=== PATIENT | female | born 1990 | race Caucasian/White ===

== ENCOUNTER 2022-03-31 20:30 | Observation (INO) | payer MEDICAID, SELFPAY ==
[2022-03-31 19:44] VITALS: BP 144/97; PULSE 82; RESP 16; TEMP 36.8; O2SAT 97
[2022-03-31 19:53] VITALS: BMI 25.4
--- NOTE | 2022-03-31 20:25 | HP.PCM_ITS ---
HPI - General General Date of Admission: 03/31/22 Date of Service: 03/31/22 Chief Complaint: Alcohol withdrawal HPI Narrative JEROME ROCHA, is a 31 F who presents to the [facility] from a [facility] emergency room requesting detoxification from alcohol. Patient states for the last 3 months she has had a bottle of Jasper's daily and has been hiding this from her fianc?. She has a history of drinking for the pas t 5 years but has been significantly increased over the last 3 months. She states she had to call off her job again and was worried about losing her job and this motivated her to seek help. She also admits to hiding her alcohol abuse from her family members. She denies chest pain, shortness of breath or fevers or chills at this time. She will be admitted for alcohol cessation protocol and social work consulted to help with resources postdischarge. PENDING SALE TO [facility] Medical History (Updated 03/31/22 @ 19:58 by Jonny Cash) ADHD (attention deficit hyperactivity disorder) Anxiety ETOH abuse Hypertension Panic disorder Home Medications norethindrone-e.estradiol triphasic 0.5 mg/0.75 mg/1 mg-35 mcg tablet (Nortrel (28)) 1 tab PO DAILY control 03/31/22 [History Last Taken 03/30/22] Allergy/AdvReac Type Severity Reaction Status Date / Time No Known Allergies Allergy Verified 03/31/22 19:55 Social History Smoking Status: Never smoker ROS Constitutional Constitutional: Denies chills or fever(s) Eyes Eyes: Denies change in vision ENT HEENT: Denies abnormal hearing Cardiovascular Cardiovascular: Denies chest pain Respiratory/Chest Respiratory/Chest: Denies cough Gastrointestinal Gastrointestinal: Denies abdominal pain Genitourinary Genitourinary: Denies dysuria Musculoskeletal Musculoskeletal: Denies back pain Integumentary Integumentary: Denies wounds Neurologic Neurologic: Denies abnormal speech Psychiatric Psychiatric: Reports anxiety Vital Signs Vital Signs Vital Signs: 03/31/22 19:44 Temperature 98.2 F Temperature Source Oral Pulse Rate 82 Respiratory Rate 16 Blood Pressure 144/97 H Blood Pressure Mean 112 Blood Pressure Source Monitor Blood Pressure Position Semi-Fowlers Blood Pressure Location Left Arm Pulse Ox 97 Oxygen Delivery Method Room Air Weight Weight: 148 lb Body Mass Index (BMI) 25.4 Physical Exam Const oriented x3 General Appearance: cooperative and well developed HEENT normocephalic and head/scalp atraumatic Eyes PERRL and EOMs intact bilaterally Lymph Lymphatic: no lymphadenopathy noted Resp normal respiratory effort, normal air movement and clear to auscultation bilaterally Cardio regular rate, regular rhythm, S1 normal heart sound and S2 normal heart sound GI non-tender and non-distended Extremity normal capillary refill Skin General Skin Exam: no breakdown Neuro CN's II-XII intact bilaterally Psych cooperative and affect normal Mood & Affect: anxious Assessment & Plan Assessment/Plan (1) ETOH abuse: PLAN: Plan 1. Alcohol abuse?admit patient to general medical floor, start [facility] protocol. We will connect patient to case management to help with discharge planning and resources. Charges/Coding Visit Charges Inpatient E&M: 26159 Init Hosp L3
[2022-03-31] MEDS: LORazepam 1 MG Tablet PO (21:20)
[2022-04-01 00:26] VITALS: BP 122/68; PULSE 92; RESP 16; TEMP 36.7; O2SAT 97
[2022-04-01] MEDS: LORazepam 1 MG Tablet PO ×6 (00:28→21:53)
[2022-04-01 05:47] VITALS: BP 141/91; PULSE 84; RESP 16; TEMP 36.7; O2SAT 99
[2022-04-01 07:46] LABS: Absolute Lymphocyte Count 1.51 X10^3/uL (0.83-4.51); Absolute Neutrophil Count 2.6 X10^3/uL (2.0-7.7); Basophil# 0.05 X10^3/uL; Basophil% 1.1 % (0-1); Eosinophil# 0.09 X10^3/uL; Hematocrit 32.4 % (37-47); Lymphocyte # 1.51 X10^3/ul (0.83-4.51); Lymphocyte % 32.9 % (19-41); Mean Corpuscular Hgb 33.7 pg (27.0-32.0); Mean Corpuscular Volume 99.4 fL (81-99); Mean Platelet Vol. 9.6 fl (6.2-12.0); Monocyte# 0.31 X10^3/uL; Monocyte% 6.8 % (0-10); NRBC Flagged by Analyzer 0 % (0-5); Neutrophil # 2.62 X10^3/uL (2.7-7.7); POSITIVE COUNT YES; Platelet Count 92 K/mm3 (150-450); RBC Distribution Width CV 16.2 % (11.6-14.6); RBC Distribution Width SD 59.5 fl (35.1-43.9); Red Blood Count 3.26 M/mm3 (4.2-5.4); White Blood Count 4.6 K/mm3 (4.4-11.0)
[2022-04-01 08:16] LABS: ALB/GLOB Ratio 0.8 RATIO (0.9-2.4); AST(SGOT) 167 U/L (15-37); Alanine Aminotransfer ALT/SGPT 37 U/L (13-56); Albumin, Serum 2.6 g/dL (3.2-5.0); Alkaline Phosphatase 64 U/L (45-117); Anion Gap 11 (5-15); BUN 8 mg/dL (7-18); BUN/Creat Ratio 16.2 RATIO (10-20); Calcium,Total 7.5 mg/dL (8.5-10.1); Chloride 105 mmol/L (98-107); EST Glomerular Filtration Rate 156 mL/min (>60); Est Glom Filt Rate - Afr Amer 189 mL/min (>60); Estimated Creatinine Clearance 143.36 ml/min; Globulin 3.3 g/dL (2.2-4.2); Glucose 85 mg/dL (74-106); Potassium 3.7 mmol/L (3.5-5.1); Protein, Total 5.9 g/dL (6.4-8.2); Sodium Level 139 mmol/L (136-145)
[2022-04-01] MEDS: Folic Acid 1 MG Tablet PO (08:20)
[2022-04-01] MEDS: Thiamine Hydrochloride 100 MG Tablet PO (08:20)
[2022-04-01 08:21] LABS: Differential Indicated SCAN CRITERIA MET
[2022-04-01 08:40] VITALS: BP 139/78; PULSE 90; RESP 18; TEMP 36.5; O2SAT 97
--- NOTE | 2022-04-01 09:41 | PCM.PN.HOSP ---
Subjective Subjective Follow-up on acute alcohol withdrawal: Patient was seen and examined. She complains of tremors. Denies any nausea or vomiting. Objective Data Objective Data Vital Signs: Vital Signs Temp Pulse Resp BP Pulse Ox O2 Del Method 98.1 F 84 16 141/91 H 99 Room Air 04/01/22 05:47 04/01/22 05:47 04/01/22 05:47 04/01/22 05:47 04/01/22 05:47 04/01/22 08:27 Oxygen Delivery Method Room Air Weight: 67.132 kg Body Mass Index (BMI) 25.4 Intake & Output: Intake and Output for Last 24 Hours 03/30/22 03/31/22 04/01/22 23:59 23:59 23:59 Intake Total 600 / 600 600 / 600 Balance 600 / 600 600 / 600 Lab / Micro Data Result Diagrams: 04/01/22 07:33 04/01/22 07:33 Labs: Laboratory Results - last 24 hr 04/01/22 07:33: WBC 4.6, RBC 3.26 L, Hgb 11.0 L, Hct 32.4 L, MCV 99.4 H, MCH 33.7 H, MCHC 34.0, RDW Std Deviation 59.5 H, RDW Coeff of Yao 16.2 H, Plt Count 92 L, MPV 9.6, Immature Gran % (Auto) 0.200, Neut % (Auto) 57.0, Lymph % (Auto) 32.9, [place] % (Auto) 6.8, Eos % (Auto) 2.0, Baso % (Auto) 1.1 H, Absolute Neuts (auto) 2.6, Absolute Lymphs (auto) 1.51, Nucleated RBC % 0 04/01/22 07:33: Sodium 139, Potassium 3.7, Chloride 105, Carbon Dioxide 23.0, Anion Gap 11, BUN 8, Creatinine 0.50 L, Estim Creat Clear Calc 143.36, Est GFR (MDRD) Af Amer 189, Est GFR (MDRD) Non-Af 156, BUN/Creatinine Ratio 16.2, Glucose 85, Calcium 7.5 L, Total Bilirubin 0.60, AST 167 H, ALT 37, Alkaline Phosphatase 64, Total Protein 5.9 L, Albumin 2.6 L, Globulin 3.3, Albumin/Globulin Ratio 0.8 L Physical Exam Narrative Physical exam: General: Alert, Oriented x3, Cooperative, no apparent distress HEENT: Atraumatic Oral: Moist Mucosa Neck: Supple Lungs:Diminished to auscultation Cardiovascular: HS I+II, regular, no murmurs Abdomen: Bowel Sounds Present, Soft, Non Tender Extremities: No edema Skin: No rashes, No breakdown Neurological: Grossly intact Psych/Mental Status: Appropriate Assessment & Plan Assessment/Plan (1) Alcohol withdrawal: PLAN: Plan 1. Acute alcohol withdrawal, slowly improving Continue therapy with phenobarbital withdrawal protocol 2. DVT prophylaxis?SCDs Charges/Coding Visit Charges Inpatient E&M: 63818 Subs Hosp L2
--- NOTE | 2022-04-01 11:08 | ADDICTION ---
This procedure writer met with PT to conduct ASAM, MSE, AUDIT, DUDIT assessments and to plan for d/c. PT A+Ox4 and participated actively. All assessments completed and placed in PT's chart. PT plans to f/u with follow-up treatment services, however she wanted to discuss it with her family upon d/c. This worker offered resources based on her listed wants and needs. PT did not indicate a need for transportation post d/c from [facility].
[2022-04-01] MEDS: Dicyclomine 10 MG Capsule 20 MG PO (11:20)
[2022-04-01] MEDS: Gabapentin 300 MG Capsule PO ×2 (11:20→21:54)
[2022-04-01 13:30] LABS: Platelet Estimate MOD DEC (ADEQ); Red Cell Morphology NORM C+C NORMAL (NORM C&C)
[2022-04-01] MEDS: hydrOXYzine PAM 25 MG Capsule 50 MG PO (13:56)
[2022-04-01 14:40] VITALS: BP 156/106; PULSE 79; RESP 18; TEMP 37.1; O2SAT 98
[2022-04-01 21:43] VITALS: BP 168/113; PULSE 86; RESP 16; TEMP 37.5; O2SAT 99
[2022-04-01] MEDS: traZODone 100 MG Tablet PO (21:54)
[2022-04-02] MEDS: LORazepam 1 MG Tablet PO ×3 (01:23→08:58)
[2022-04-02 04:49] VITALS: BP 152/104; PULSE 93; RESP 18; TEMP 36.5; O2SAT 99
[2022-04-02] MEDS: hydrOXYzine PAM 25 MG Capsule 50 MG PO (04:54)
--- NOTE | 2022-04-02 07:06 | PCM.PN.HOSP ---
Subjective Subjective Follow-up on acute alcohol withdrawal: Patient was seen and examined.? No acute events overnight. She feels improved. Objective Data Objective Data Vital Signs: Vital Signs Temp Pulse Resp BP Pulse Ox O2 Del Method 97.7 F L 93 18 152/104 H 99 Room Air 04/02/22 04:49 04/02/22 04:49 04/02/22 04:49 04/02/22 04:49 04/02/22 04:49 04/02/22 04:49 Oxygen Delivery Method Room Air Weight: 67.132 kg Body Mass Index (BMI) 25.4 Intake & Output: Intake and Output for Last 24 Hours 03/31/22 04/01/22 04/02/22 23:59 23:59 23:59 Intake Total 600 / 600 1700 / 1700 1000 / 1000 Balance 600 / 600 1700 / 1700 1000 / 1000 Lab / Micro Data Result Diagrams: 04/01/22 07:33 04/01/22 07:33 Labs: Laboratory Results - last 24 hr 04/01/22 07:33: WBC 4.6, RBC 3.26 L, Hgb 11.0 L, Hct 32.4 L, MCV 99.4 H, MCH 33.7 H, MCHC 34.0, RDW Std Deviation 59.5 H, RDW Coeff of Yao 16.2 H, Plt Count 92 L, MPV 9.6, Immature Gran % (Auto) 0.200, Neut % (Auto) 57.0, Lymph % (Auto) 32.9, [place] % (Auto) 6.8, Eos % (Auto) 2.0, Baso % (Auto) 1.1 H, Absolute Neuts (auto) 2.6, Absolute Lymphs (auto) 1.51, Nucleated RBC % 0, Platelet Estimate MOD DEC, RBC Morphology NORM C+C 04/01/22 07:33: Sodium 139, Potassium 3.7, Chloride 105, Carbon Dioxide 23.0, Anion Gap 11, BUN 8, Creatinine 0.50 L, Estim Creat Clear Calc 143.36, Est GFR (MDRD) Af Amer 189, Est GFR (MDRD) Non-Af 156, BUN/Creatinine Ratio 16.2, Glucose 85, Calcium 7.5 L, Total Bilirubin 0.60, AST 167 H, ALT 37, Alkaline Phosphatase 64, Total Protein 5.9 L, Albumin 2.6 L, Globulin 3.3, Albumin/Globulin Ratio 0.8 L Physical Exam Narrative Physical exam: General: Alert, Oriented x3, Cooperative, no apparent distress HEENT: Atraumatic Oral: Moist Mucosa Neck: Supple Lungs:Diminished to auscultation Cardiovascular: HS I+II, regular, no murmurs Abdomen: Bowel Sounds Present, Soft, Non Tender Extremities: No edema Skin: No rashes, No breakdown Neurological: Grossly intact Psych/Mental Status: Appropriate Assessment & Plan Assessment/Plan (1) Alcohol withdrawal: PLAN: Plan 1. Acute alcohol withdrawal, improving Patient continues to require medication and monitoring for withdrawal based on regular assessment and remains appropriate for ASAM level 4.0 Continue therapy with phenobarbital withdrawal protocol 2. DVT prophylaxis?SCDs Charges/Coding Visit Charges Inpatient E&M: 94952 Subs Hosp L2
[2022-04-02] MEDS: Thiamine Hydrochloride 100 MG Tablet PO (07:57)
[2022-04-02] MEDS: Folic Acid 1 MG Tablet PO (07:57)
[2022-04-02 08:00] VITALS: BP 149/108; PULSE 87; RESP 16; TEMP 36.8; O2SAT 100
[2022-04-02 13:08] VITALS: BP 149/106; PULSE 110; RESP 16; TEMP 37; O2SAT 100
--- NOTE | 2022-04-02 13:10 | NURSING ---
pt stated she was going to leave because she stated she feels fine. explained that pt would be leaving ama. explained what ama was. pt understood and still wanted to leave. pt signed ama papers. dr booth notified.
== END 2022-04-02 14:13 | disposition left against medical advice (07) | DRG 770 ==
PROVIDERS: Visit Provider Internal Medicine
DX: F10.139 Alcohol abuse with withdrawal, unspecified (principal); Z53.29 Procedure and treatment not carried out because of patient's decision for other reasons; Y90.9 Presence of alcohol in blood, level not specified; I10 Essential (primary) hypertension
CPT/HCPCS: G0379; 36415; 80053; 85025; 99221; G0378

== ENCOUNTER 2022-04-04 09:44 | Emergency (ER) | payer MEDICAID, SELFPAY ==
[2022-04-04 09:48] VITALS: BP 136/94; PULSE 88; RESP 18; TEMP 36.1; O2SAT 100; BMI 24.0
--- NOTE | 2022-04-04 10:18 | EX.ED.DYSGE1 ---
HPI History of Present Illness Chief Complaint: Abd Pain Informant: patient Narrative Narrative: Sent from urgent care patient requested EMS transport from there. 2-day history lower abdominal pain dysuria with frequency. Diarrhea for 2 days. Nonbloody. Too many to count. Denies recent antibiotics. States been having chills. No rhinorrhea or cough. No nausea or vomiting. Denies sick contacts. COVID vaccinated, COVID infection 6 months ago. She is tolerating oral fluids. History of pyelonephritis while in high school. Denies any allergies. Denies back pain. Last menstrual period a week ago. [facility] Medical History ADHD (attention deficit hyperactivity disorder) Anxiety ETOH abuse Hypertension Panic disorder Home Medications norethindrone-e.estradiol triphasic 0.5 mg/0.75 mg/1 mg-35 mcg tablet (Nortrel (28)) 1 tab PO DAILY control 03/31/22 [History Last Taken 03/30/22] cephalexin 500 mg capsule 500 mg PO Q12 #14 caps 04/04/22 [Rx Last Taken Unknown] Allergy/AdvReac Type Severity Reaction Status Date / Time No Known Allergies Allergy Verified 04/04/22 09:06 Social History Smoking Status: Never smoker ROS ROS ED Constitutional Constitutional ED: Reports chills; Denies fever(s) or sweats Eyes Eyes: Denies change in vision ENT ENT ED: Denies dysphagia or sore throat Cardiovascular Cardiovascular: Denies chest pain, leg edema, palpitations or racing heartbeat Respiratory/Chest Respiratory/Chest: Denies cough, dyspnea or dyspnea on exertion Gastrointestinal Gastrointestinal: Reports abdominal pain and diarrhea; Denies nausea or vomiting Genitourinary Genitourinary ED: Reports dysuria and urinary frequency; Denies hematuria Musculoskeletal Musculoskeletal: Denies back pain, extremity pain or neck pain Integumentary Denies rash or wounds Neurologic Neurologic: Denies headache(s), paresthesias or weakness EXAM Physical Exam Const Vital Signs: 04/04/22 09:48 04/04/22 11:34 Temperature 97 F L Temperature Source Temporal Pulse Rate 88 89 Respiratory Rate 18 16 Blood Pressure 136/94 H 124/87 H Blood Pressure Mean 108 Pulse Ox 100 99 Oxygen Delivery Method Room Air Positive well nourished and well developed General Appearance ED: well developed and NAD HEENT HEENT Narrative: Mild dry mucosal membranes normocephalic and atraumatic Eyes PERRL, EOMs intact bilaterally and conjunctivae normal General Eye ED: Yes normal appearance of both eyes Neck no lymphadenopathy and supple General: Negative for tenderness Chest Wall Chest: Negative for tenderness Resp normal respiratory effort and normal air movement Effort and Inspection: symmetric chest movement; Negative for respiratory distress Cardio regular rate, regular rhythm and no murmurs Peripheral Pulses: pulses 2+ throughout GI normal to inspection, nondistended, normoactive bowel sounds and non-tender GI Narrative: No reproducible tenderness. Negative Liu's McBurney's tenderness. Palpation: Negative for guarding or rebound tenderness present Back/Spine no CVA tenderness and no thoracic nor lumbar tenderness Extremity normal to inspection General Extremety ED: Negative for edema or tenderness General Extremity: Negative for edema Neuro oriented x3 and no sensory deficits noted Sensorium / Orientation: awake and alert Skin no rashes or lesions noted and no wounds MDM MDM MDM Narrative Medical decision making narrative: Patient vital stable. Nontoxic nonsurgical abdomen. With reported chills diarrhea COVID influenza obtained negative. Labs were obtained white count 5.7 hemoglobin 7.9 creatinine 0.64 potassium 3.5 sodium 134. Initial order for urine however per nursing there is urine resulted from the clinic. hCG negative urine noted leukocytes. Trace blood. She is symptomatic with urine. She has a noncomplicated UTI with chills. She started on Keflex. She is able to tolerate p.o. intake in the ED. She did have slight transaminitis, however reviewing records 3 days ago admitted for alcohol dependence. She is following outpatient program. Likely alcoholic hepatitis. She has no withdrawal symptoms. She is given follow-up as an outpatient. All questions answered. Lab Data Labs: Laboratory Results - last 24 hr 04/04/22 04/04/22 10:30 10:30 WBC 5.7 RBC 3.51 L Hgb 11.9 L Hct 35.6 L MCV 101.4 H MCH 33.9 H MCHC 33.4 RDW Std Deviation 57.6 H RDW Coeff of Yao 15.3 H Plt Count 90 L MPV 11.0 Immature Gran % (Auto) 0.300 Neut % (Auto) 75.6 H Lymph % (Auto) 14.7 L [place] % (Auto) 8.4 Eos % (Auto) 0.7 Baso % (Auto) 0.3 Absolute Neuts (auto) 4.3 Absolute Lymphs (auto) 0.84 Nucleated RBC % 0 Sodium 134 L Potassium 3.5 Chloride 98 Carbon Dioxide 23.0 Anion Gap 13 BUN 5 L Creatinine 0.64 Estim Creat Clear Calc 112.00 Est GFR (MDRD) Af Amer 141 Est GFR (MDRD) Non-Af 117 BUN/Creatinine Ratio 7.9 L Glucose 95 Calcium 8.7 Total Bilirubin 0.80 AST 218 H ALT 62 H Alkaline Phosphatase 65 Total Protein 7.4 Albumin 3.3 Globulin 4.1 Albumin/Globulin Ratio 0.8 L Discharge Plan Triage Chief Complaint: Abd Pain Other Complaint: Nausea/Vomiting/Diarrhea ED Provider: Landon Garland Dx/Rx/DC Orders Clinical Impression: UTI (urinary tract infection), Chills, Diarrhea, Hepatitis, alcoholic, Acute hypokalemia Instructions: Urinary Tract Infections in Women, Self-Care for Vomiting and Diarrhea Prescriptions: New cephalexin [cephalexin] 500 mg capsule 500 mg PO Q12 Qty: 14 0RF No Action Nortrel (28) 0.5/0.75/1 mg- 35 mcg tablet 1 tab PO DAILY Label Comments: TAKE 1 TABLET BY MOUTH EVERY DAY Primary Care Provider: Care Physician,No Primary Referrals: Caridad Reyes [Non-Staff] - 1-2 Weeks Care Physician,No Primary [Primary Care Provider] - Disposition Disposition: Home, Self Care Discharge Date/Time: 04/04/22 11:37
[2022-04-04] MEDS: Acetaminophen 500 MG Tablet 1000 MG PO (10:27)
[2022-04-04] MEDS: 0.9% Normal Saline 1,000 ML 1000 ML IV (10:27)
[2022-04-04] MEDS: hydrOXYzine PAM 25 MG Capsule 50 MG PO (10:39)
[2022-04-04 10:40] LABS: Absolute Lymphocyte Count 0.84 X10^3/uL (0.83-4.51); Absolute Neutrophil Count 4.3 X10^3/uL (2.0-7.7); Basophil# 0.02 X10^3/uL; Basophil% 0.3 % (0-1); Eosinophil# 0.04 X10^3/uL; Eosinophils% 0.7 % (0-5); Hematocrit 35.6 % (37-47); Hemoglobin 11.9 g/dL (12.0-15.0); Lymphocyte # 0.84 X10^3/ul (0.83-4.51); Lymphocyte % 14.7 % (19-41); Mean Corp Hgb Conc 33.4 g/dL (32-36); Mean Corpuscular Hgb 33.9 pg (27.0-32.0); Mean Corpuscular Volume 101.4 fL (81-99); Monocyte# 0.48 X10^3/uL; Monocyte% 8.4 % (0-10); NRBC Flagged by Analyzer 0 % (0-5); Neutrophil # 4.33 X10^3/uL (2.7-7.7); Neutrophil % 75.6 % (47-70); POSITIVE COUNT YES; Platelet Count 90 K/mm3 (150-450); RBC Distribution Width CV 15.3 % (11.6-14.6); RBC Distribution Width SD 57.6 fl (35.1-43.9); Red Blood Count 3.51 M/mm3 (4.2-5.4); White Blood Count 5.7 K/mm3 (4.4-11.0)
[2022-04-04 10:53] LABS: ALB/GLOB Ratio 0.8 RATIO (0.9-2.4); AST(SGOT) 218 U/L (15-37); Alanine Aminotransfer ALT/SGPT 62 U/L (13-56); Albumin, Serum 3.3 g/dL (3.2-5.0); Alkaline Phosphatase 65 U/L (45-117); Anion Gap 13 (5-15); BUN 5 mg/dL (7-18); BUN/Creat Ratio 7.9 RATIO (10-20); Calcium,Total 8.7 mg/dL (8.5-10.1); Chloride 98 mmol/L (98-107); Creatinine, Serum 0.64 mg/dL (0.55-1.02); EST Glomerular Filtration Rate 117 mL/min (>60); Est Glom Filt Rate - Afr Amer 141 mL/min (>60); Globulin 4.1 g/dL (2.2-4.2); Glucose 95 mg/dL (74-106); Potassium 3.5 mmol/L (3.5-5.1); Protein, Total 7.4 g/dL (6.4-8.2); Sodium Level 134 mmol/L (136-145)
[2022-04-04] MEDS: Potassium Chloride Oral Tablet 20 MEQ PO (11:31)
[2022-04-04] MEDS: Cephalexin 250 MG Capsule 500 MG PO (11:31)
[2022-04-04 11:34] VITALS: BP 124/87; PULSE 89; RESP 16; O2SAT 99
== END 2022-04-04 11:37 | disposition home or self-care (01) ==
PROVIDERS: Emergency Provider Emergency Medicine; Visit Provider Emergency Medicine
DX: N39.0 Urinary tract infection, site not specified (principal); R68.83 Chills (without fever); R19.7 Diarrhea, unspecified; K70.10 Alcoholic hepatitis without ascites; E87.6 Hypokalemia; Z86.16 Personal history of COVID-19
CPT/HCPCS: 80053; 85025; 87428; 96360; 99283; J7030; A4216

== ENCOUNTER 2022-06-09 09:46 | Emergency (ER) | payer MEDICAID, SELFPAY ==
[2022-06-09 09:47] VITALS: BP 206/124; PULSE 120; RESP 16; TEMP 36.2; O2SAT 99; BMI 22.3
--- NOTE | 2022-06-09 10:17 | ED.VIS.GI ---
HPI HPI - GI History of Present Illness Chief Complaint: Abd Pain Informant: patient Abdominal Pain/Flank Pain Onset: Weeks (1) Context: Sudden Onset Timing: Continuous Quality: Burning and Dull Location: Epigastric Worsened by: Nothing Relieved by: Nothing Nausea/Vomiting/Emesis GI Symptom: Positive for Nausea and Vomiting Onset: Weeks (1) Quality: Positive for Blood streaks Diarrhea/Melena/Hematochezia GI Symptom: Positive for Diarrhea; Negative for Melena or Hematochezia Associated Symptoms Associated Symptoms: Negative for Dysuria, Frequency or Hematuria Narrative Narrative: Patient presents with epigastric pain that has been constant for the past week. Patient states the pain is over the epigastric area and radiates up into her chest. Patient describes her pain as dull and burning. Patient states she thinks she has an ulcer. Patient admits to some nausea and vomiting. Patient states she has noted some blood streaks in her vomiting. Patient admits to some diarrhea. Patient states she is also noted some blood in her stools but does not know if it is dark or bright red blood. Patient denies any dysuria or hematuria. Patient denies any urinary frequency. Patient states her last menstrual period was approximate 1 week ago. Patient admits to some subjective chills but denies any fevers. Patient denies any radiation of the pain to her back or neck. [facility] Medical History ADHD (attention deficit hyperactivity disorder) Anxiety ETOH abuse Hypertension Panic disorder Home Medications norethindrone-e.estradiol triphasic 0.5 mg/0.75 mg/1 mg-35 mcg tablet (Nortrel (28)) 1 tab PO DAILY control 03/31/22 [History Last Taken 03/30/22] cephalexin 500 mg capsule 500 mg PO Q12 #14 caps 04/04/22 [Rx Last Taken Unknown] omeprazole 20 mg capsule,delayed release 20 mg PO DAILY #30 CAPSULES 06/09/22 [Rx Last Taken Unknown] Allergy/AdvReac Type Severity Reaction Status Date / Time No Known Allergies Allergy Verified 04/04/22 09:06 Social History Smoking Status: Never smoker ROS ROS ED Constitutional Constitutional ED: Reports chills and subjective; Denies fever(s) Eyes Eyes: Denies blurry vision or change in vision ENT ENT ED: Denies rhinorrhea or sore throat Cardiovascular Cardiovascular: Denies chest pain or palpitations Respiratory/Chest Respiratory/Chest: Denies cough or dyspnea Gastrointestinal Gastrointestinal: Reports abdominal pain, diarrhea, nausea and vomiting Genitourinary Genitourinary ED: Denies dysuria or hematuria Musculoskeletal Musculoskeletal: Denies back pain or neck pain Integumentary Denies abscess or rash Neurologic Neurologic: Denies headache(s) or weakness Allergic/Immunologic Allergic/Immunologic ED: Denies mouth swelling or urticaria EXAM Physical Exam Const Vital Signs: 06/09/22 09:47 Temperature 97.1 F L Temperature Source Temporal Pulse Rate 120 H Respiratory Rate 16 Blood Pressure 206/124 H Blood Pressure Mean 151 Pulse Ox 99 Oxygen Delivery Method Room Air Positive well nourished and well developed General Appearance ED: well developed and NAD HEENT Reports moist mucous membranes Neck supple and no JVD Resp normal respiratory effort and clear to auscultation bilaterally Cardio regular rate, regular rhythm and no murmurs GI normal to inspection, nondistended, normoactive bowel sounds Palpation: soft and tender epigastric Extremity normal to inspection General Extremety ED: Negative for edema or tenderness General Extremity: Negative for edema Neuro oriented x3, CN's II-XII intact bilaterally and no sensory deficits noted Sensorium / Orientation: alert Motor Exam: strength 5/5 throughout Psych mental status grossly normal Skin no rashes or lesions noted MDM MDM MDM Narrative Medical decision making narrative: Patient was given a GI cocktail, IV fluids, and Zofran. CBC was within normal limits. Comprehensive metabolic profile was within normal limits. Lipase was normal. Serum hCG was negative. Patient was feeling better on reevaluation. Patient was given a prescription for omeprazole. Patient was instructed to drink plenty of fluids. Patient was instructed use [id number] antacids as needed. Patient was instructed to follow-up with her primary care physician in 5 to 7 days. Patient understood and was agreeable with the plan. All questions were answered. Lab Data Attestation: I reviewed the patient's lab results. Labs: Laboratory Results - last 24 hr 06/09/22 06/09/22 06/09/22 10:30 10:30 10:30 WBC 4.9 RBC 4.00 L Hgb 13.0 Hct 38.4 MCV 96.0 MCH 32.5 H MCHC 33.9 RDW Std Deviation 57.0 H RDW Coeff of Yao 16.4 H Plt Count 129 L MPV 9.3 Immature Gran % (Auto) 0.200 Neut % (Auto) 65.3 Lymph % (Auto) 25.1 Page % (Auto) 7.8 Eos % (Auto) 0.4 Baso % (Auto) 1.2 H Absolute Neuts (auto) 3.2 Absolute Lymphs (auto) 1.23 Nucleated RBC % 0 Sodium 135 L Potassium 3.7 Chloride 99 Carbon Dioxide 22.0 Anion Gap 14 BUN 4 L Creatinine 0.63 Estim Creat Clear Calc 112.75 Est GFR (MDRD) Af Amer 143 Est GFR (MDRD) Non-Af 119 BUN/Creatinine Ratio 6.4 L Glucose 89 Calcium 8.5 Total Bilirubin 0.40 AST 150 H ALT 40 Alkaline Phosphatase 106 Total Protein 7.4 Albumin 3.6 Globulin 3.8 Albumin/Globulin Ratio 0.9 Lipase 103 Serum , Qual NEGATIVE Discharge Plan Triage Chief Complaint: Abd Pain ED Provider: Trey Antonio Dx/Rx/DC Orders Clinical Impression: Epigastric abdominal pain, Gastritis Instructions: ED Gastritis (Adult), ED Epigastric Pain Uncertain Cause Prescriptions: New omeprazole [omeprazole] 20 mg capsule,delayed release(DR/EC) 20 mg PO DAILY Qty: 30 0RF No Action Nortrel (28) 0.5/0.75/1 mg- 35 mcg tablet 1 tab PO DAILY Label Comments: TAKE 1 TABLET BY MOUTH EVERY DAY cephalexin [cephalexin] 500 mg capsule 500 mg PO Q12 Qty: 14 0RF Stand Alone Forms: ED Work / School Excuse Primary Care Provider: Care Physician,No Primary Referrals: Malorie Robertson DO [Med Staff - Active Staff] - 5-7 Days Care Physician,No Primary [Primary Care Provider] - Disposition Disposition: Home, Self Care
[2022-06-09] MEDS: Mag Hydrox/Al Hydrox/Simeth 30 ML UDC PO (10:37)
[2022-06-09] MEDS: Ondansetron 4 MG/2 ML Vial IV (10:37)
[2022-06-09] MEDS: 0.9% Normal Saline 1,000 ML 1000 ML IV (10:37)
[2022-06-09 10:48] LABS: Absolute Lymphocyte Count 1.23 X10^3/uL (0.83-4.51); Absolute Neutrophil Count 3.2 X10^3/uL (2.0-7.7); Basophil# 0.06 X10^3/uL; Basophil% 1.2 % (0-1); Eosinophil# 0.02 X10^3/uL; Eosinophils% 0.4 % (0-5); Hematocrit 38.4 % (37-47); Lymphocyte # 1.23 X10^3/ul (0.83-4.51); Lymphocyte % 25.1 % (19-41); Mean Corp Hgb Conc 33.9 g/dL (32-36); Mean Corpuscular Hgb 32.5 pg (27.0-32.0); Mean Platelet Vol. 9.3 fl (6.2-12.0); Monocyte# 0.38 X10^3/uL; Monocyte% 7.8 % (0-10); NRBC Flagged by Analyzer 0 % (0-5); Neutrophil % 65.3 % (47-70); Platelet Count 129 K/mm3 (150-450); RBC Distribution Width CV 16.4 % (11.6-14.6); White Blood Count 4.9 K/mm3 (4.4-11.0)
[2022-06-09 11:07] LABS: ALB/GLOB Ratio 0.9 RATIO (0.9-2.4); AST(SGOT) 150 U/L (15-37); Alanine Aminotransfer ALT/SGPT 40 U/L (13-56); Albumin, Serum 3.6 g/dL (3.2-5.0); Alkaline Phosphatase 106 U/L (45-117); Anion Gap 14 (5-15); BUN 4 mg/dL (7-18); BUN/Creat Ratio 6.4 RATIO (10-20); Calcium,Total 8.5 mg/dL (8.5-10.1); Chloride 99 mmol/L (98-107); Creatinine, Serum 0.63 mg/dL (0.55-1.02); EST Glomerular Filtration Rate 119 mL/min (>60); Est Glom Filt Rate - Afr Amer 143 mL/min (>60); Estimated Creatinine Clearance 112.75 ml/min; Globulin 3.8 g/dL (2.2-4.2); Glucose 89 mg/dL (74-106); Lipase 103 U/L (73-393); Potassium 3.7 mmol/L (3.5-5.1); Protein, Total 7.4 g/dL (6.4-8.2); Sodium Level 135 mmol/L (136-145)
[2022-06-09 11:09] LABS: Internal QC Validated? YES +Cl - CLEAR BKGD; Pregnancy, Serum, hCG Quali. NEGATIVE Negative
== END 2022-06-09 12:44 | disposition home or self-care (01) ==
PROVIDERS: Emergency Provider Emergency Medicine; Visit Provider Emergency Medicine
DX: K29.70 Gastritis, unspecified, without bleeding (principal); R10.13 Epigastric pain; I10 Essential (primary) hypertension; R19.7 Diarrhea, unspecified
CPT/HCPCS: 80053; 83690; 84703; 85025; 96361; 96374; 99282; J7030; J2405

== ENCOUNTER 2022-06-16 12:46 | Emergency (ER) | payer MEDICAID, SELFPAY ==
[2022-06-16 12:47] VITALS: BP 131/92; PULSE 133; RESP 14; TEMP 36.5; O2SAT 98; BMI 24.7
--- NOTE | 2022-06-16 14:18 | EDS_ITS ---
HPI HPI - GI History of Present Illness Chief Complaint: GI Bleed Detail of Chief Complaint: Nausea and vomiting. Informant: patient Abdominal Pain/Flank Pain Onset: Days Context: Gradual Onset Timing: Intermittent Quality: Burning Location: Epigastric Current Severity: Mild Maximum Severity: Mild Worsened by: Nothing Relieved by: Nothing Nausea/Vomiting/Emesis GI Symptom: Positive for Nausea and Vomiting Onset: Days Quality: Positive for Hematemesis Severity: Moderate Diarrhea/Melena/Hematochezia GI Symptom: Negative for Diarrhea, Melena or Hematochezia Associated Symptoms Associated Symptoms: Negative for Dysuria, Frequency or Hematuria Narrative Narrative: 32-year-old female no seen past medical history. Currently on no medications other than control. States for a week she has had nausea vomiting believes that she is thrown up small amounts of bright red blood. No clots. She is never had an ulcer. No history of Cassandra-Armendariz. She has never had upper endoscopy. Denies any melena. Feel she is dehydrated. Prior similar symptoms: No Recent Illness/Hospitalization: No PFSH PFSH Medical History ADHD (attention deficit hyperactivity disorder) Anxiety ETOH abuse Hypertension Panic disorder Home Medications norethindrone-e.estradiol triphasic 0.5 mg/0.75 mg/1 mg-35 mcg tablet (Nortrel (28)) 1 tab PO DAILY control 03/31/22 [History Last Taken 03/30/22] omeprazole 20 mg capsule,delayed release 20 mg PO DAILY #30 CAPSULES 06/09/22 [Rx Last Taken Unknown] ondansetron 4 mg disintegrating tablet 4 mg PO Q6H PRN nausea and vomiting #7 tabs 06/16/22 [Rx Last Taken Unknown] Allergy/AdvReac Type Severity Reaction Status Date / Time No Known Allergies Allergy Verified 06/16/22 12:47 Social History Smoking Status: Never smoker ROS ROS ED ROS Narrative Nausea and vomiting. Epigastric pain. Review of Systems ROS Unobtainable: Denies due to encephalopathy Constitutional Constitutional ED: Denies chills or fever(s) ENT ENT ED: Denies ear pain or rhinorrhea Cardiovascular Cardiovascular: Denies chest pain Respiratory/Chest Respiratory/Chest: Denies cough or dyspnea Gastrointestinal Gastrointestinal: Reports abdominal pain, nausea and vomiting; Denies constipation, diarrhea or melena Genitourinary Genitourinary ED: Denies dysuria or hematuria Musculoskeletal Musculoskeletal: Denies arthralgias Integumentary Denies abscess Neurologic Neurologic: Denies headache(s) Psychiatric Psychiatric: Denies anxiety Endocrine Endocrinology: Denies polydipsia Hematologic/Lymphatic Hematologic/Lymphatic: Denies easy bleeding Allergic/Immunologic Allergic/Immunologic ED: Denies mouth swelling or tongue swelling EXAM Physical Exam Narrative Exam Narrative: 32-year-old female no acute distress. Vital signs stable on her heart rate of 130. She does not look septic or toxic. She does not look severely dehydrated. H EENT exam unremarkable. Neck nontender no lymphadenopathy. Lungs clear to auscultation bilaterally. Heart tachycardic rate about 130 no murmur. Abdomen soft nondistended normal bowel sounds no peritoneal signs tenderness in epiga stric region only. Right upper and right lower quadrants are unremarkable. No distention. No obstruction. Moving all 4 extremities. Back nontender. Neurologically she is awake alert with no focal motor deficits. Const Vital Signs: 06/16/22 12:47 06/16/22 14:52 06/16/22 16:30 Temperature 97.7 F L Temperature Source Temporal Pulse Rate 133 H 110 H 78 Respiratory Rate 14 20 H 14 Blood Pressure 131/92 H Blood Pressure Mean 105 Pulse Ox 98 Oxygen Delivery Method Room Air Positive well nourished and well developed; Negative for obese, cachectic, contractures or unkempt General Appearance ED: well developed and NAD; Negative for unkempt, cachectic, contractures or pallor Nutritional Appearance: Negative for cachectic or obese HEENT Reports moist mucous membranes normocephalic and atraumatic; Negative for trauma or tenderness Eyes PERRL and EOMs intact bilaterally General Eye ED: Negative for pale conjunctiva Neck no lymphadenopathy, supple and no JVD General: Negative for tenderness Carotids: Negative for other Lymph Lymphatic: Negative for other Resp normal respiratory effort and clear to auscultation bilaterally Effort and Inspection: Negative for respiratory distress Auscultation: Negative for rales, rhonchi or wheezes Cardio regular rhythm, S1 normal heart sound, S2 normal heart sound and no murmurs; Negative for regular rate Rate: tachycardic GI non-distended and no masses; Negative for non-tender Inspection: Negative for abdominal distention Auscultation: normoactive bowel sounds Palpation: soft and tender; Negative for guarding or rigid Back/Spine no CVA tenderness General Back: Negative for CVA tenderness Cervical Spine: Negative for cervical spine tenderness Thoracic Spine / Upper Back: Negative for thoracic spinal tenderness Lumbar Spine / Lower Back: Negative for lumbar spinal tenderness Coccyx: Negative for other Extremity full ROM General Extremety ED: Negative for edema or tenderness General Extremity: Negative for edema Neuro CN's II-XII intact bilaterally, moves all extremities and no sensory deficits noted Sensorium / Orientation: alert, oriented to person, oriented to place and o riented to time; Negative for orientation impaired, confused, lethargic or stuporous Motor Exam: strength 5/5 throughout Psych mental status grossly normal and thought process normal Appearance: Negative for unkempt or other Attitude: No agitated Mood & Affect: Negative for depressed, anxious or tearful Skin no wounds General Skin Exam: Negative for jaundice or pallor Lesions: no lesions and No lesion noted Rashes: no rashes Trauma: Negative for abrasion Nails: Negative for discolored MDM MDM MDM Narrative Medical decision making narrative: 32-year-old epigastric abdominal pain she has a concerned she may have an upper GI bleed. No prior history. Screening labs. IV Zofran for nausea, IV fluids for dehydration for nausea and vomiting and labs including a blood count for possible upper GI bleed. Also being treated with Protonix. Multiple repeat exams patient is doing well. She is doing well at 6:18 PM. She will be discharged home with outpatient follow-up. Zofran as needed for nausea. She was written for omeprazole on her last visit. She has no signs of a GI bleed currently. Lab Data Attestation: I reviewed the patient's lab results. Lab results narrative: CBC shows a white count of 3.7. H&H 14.2 and 42.2. No significant change from prior. Platelet count is low at 101. Electrolytes show sodium 132. Gap of 15. BUN of 4 creatinine 0.6. Liver enzymes are elevated at bilirubin 1.5 AST of 521 ALT of 110 alk phos of 174. Lipase is normal at 301. Due to the elevated liver enzymes a ultrasound was obtained showed a normal gallbladder with no gallstones. Just showed fatty infiltration the liver otherwise unremarkable. Labs: Laboratory Results - last 24 hr 06/16/22 06/16/22 14:50 14:50 WBC 3.7 L RBC 4.43 Hgb 14.2 Hct 42.2 MCV 95.3 MCH 32.1 H MCHC 33.6 RDW Std Deviation 59.7 H RDW Coeff of Yao 17.1 H Plt Count 101 L MPV 10.3 Immature Gran % (Auto) 0.500 Neut % (Auto) 61.4 Lymph % (Auto) 27.8 [place] % (Auto) 8.4 Eos % (Auto) 0.8 Baso % (Auto) 1.1 H Absolute Neuts (auto) 2.3 Absolute Lymphs (auto) 1.02 Nucleated RBC % 0 Sodium 132 L Potassium 3.5 Chloride 97 L Carbon Dioxide 20.0 L Anion Gap 15 BUN 4 L Creatinine 0.66 Estim Creat Clear Calc 107.63 Est GFR (MDRD) Af Amer 135 Est GFR (MDRD) Non-Af 112 BUN/Creatinine Ratio 6.1 L Glucose 80 Calcium 9.2 Total Bilirubin 1.50 H AST 521 H ALT 110 H Alkaline Phosphatase 174 H Total Protein 7.9 Albumin 3.9 Globulin 4.0 Albumin/Globulin Ratio 1.0 Lipase 301 Radiography Diagnostic Testing: Clinical Impression(s) from Imaging Studies Gallbladder Ultrasound 06/16/22 16:18 IMPRESSION: Fatty infiltration of the liver. Electronically Signed: Lisandro Garrett MD at 18:10 EST Reading Location ID and State: [address] [place] [address] Tel , Service support , Discharge Plan Triage Chief Complaint: GI Bleed Other Complaint: Abd Pain ED Provider: Hansel Hogue Dx/Rx/DC Orders Clinical Impression: Abnormal liver enzymes, Nausea & vomiting Instructions: ED Vomiting (Adult) Prescriptions: New ondansetron 4 mg tablet,disintegrating 4 mg PO Q6H PRN (Reason: nausea and vomiting) Qty: 7 0RF No Action Nortrel (28) 0.5/0.75/1 mg- 35 mcg tablet 1 tab PO DAILY Label Comments: TAKE 1 TABLET BY MOUTH EVERY DAY omeprazole [omeprazole] 20 mg capsule,delayed release(DR/EC) 20 mg PO DAILY Qty: 30 0RF Primary Care Provider: Care Physician,No Primary Referrals: Heraclio Delgado MD [Med Staff - Modeling Instructor] - As soon as possible Care Physician,No Primary [Primary Care Provider] - Activity Restrictions/Additional Instructions: Plenty of fluids and rest. Use your omeprazole for irritation in your stomach. Zofran as needed for nausea. Follow-up with a local physician. If you notice black stool or you are throwing up large amounts of blood specifically clots you need to return. Your blood counts today were very good and actually better than they were the other day. No signs of any significant blood loss. Disposition Disposition: Home, Self Care
[2022-06-16] MEDS: 0.9% Normal Saline 1,000 ML 1000 ML IV (14:50)
[2022-06-16] MEDS: Ondansetron 4 MG/2 ML Vial IV (14:50)
[2022-06-16 14:52] VITALS: PULSE 110; RESP 20
[2022-06-16 15:01] LABS: Absolute Lymphocyte Count 1.02 X10^3/uL (0.83-4.51); Absolute Neutrophil Count 2.3 X10^3/uL (2.0-7.7); Basophil# 0.04 X10^3/uL; Basophil% 1.1 % (0-1); Eosinophil# 0.03 X10^3/uL; Eosinophils% 0.8 % (0-5); Hematocrit 42.2 % (37-47); Hemoglobin 14.2 g/dL (12.0-15.0); Lymphocyte # 1.02 X10^3/ul (0.83-4.51); Lymphocyte % 27.8 % (19-41); Mean Corp Hgb Conc 33.6 g/dL (32-36); Mean Corpuscular Hgb 32.1 pg (27.0-32.0); Mean Corpuscular Volume 95.3 fL (81-99); Mean Platelet Vol. 10.3 fl (6.2-12.0); Monocyte# 0.31 X10^3/uL; Monocyte% 8.4 % (0-10); NRBC Flagged by Analyzer 0 % (0-5); Neutrophil # 2.25 X10^3/uL (2.7-7.7); Neutrophil % 61.4 % (47-70); Platelet Count 101 K/mm3 (150-450); RBC Distribution Width CV 17.1 % (11.6-14.6); RBC Distribution Width SD 59.7 fl (35.1-43.9); Red Blood Count 4.43 M/mm3 (4.2-5.4); White Blood Count 3.7 K/mm3 (4.4-11.0)
[2022-06-16 15:21] LABS: AST(SGOT) 521 U/L (15-37); Alanine Aminotransfer ALT/SGPT 110 U/L (13-56); Albumin, Serum 3.9 g/dL (3.2-5.0); Alkaline Phosphatase 174 U/L (45-117); Anion Gap 15 (5-15); BUN 4 mg/dL (7-18); BUN/Creat Ratio 6.1 RATIO (10-20); Calcium,Total 9.2 mg/dL (8.5-10.1); Chloride 97 mmol/L (98-107); Creatinine, Serum 0.66 mg/dL (0.55-1.02); EST Glomerular Filtration Rate 112 mL/min (>60); Est Glom Filt Rate - Afr Amer 135 mL/min (>60); Estimated Creatinine Clearance 107.63 ml/min; Glucose 80 mg/dL (74-106); Lipase 301 U/L (73-393); Potassium 3.5 mmol/L (3.5-5.1); Protein, Total 7.9 g/dL (6.4-8.2); Sodium Level 132 mmol/L (136-145)
--- NOTE | 2022-06-16 16:18 | US_ITS ---
STUDY: ABDOMINAL ULTRASOUND - RIGHT UPPER QUADRANT REASON FOR VISIT: Female, 32 years old RUQ pain. Abnormal liver enzymes. TECHNIQUE: Ultrasound evaluation of the right upper quadrant was performed with real-time and static rand-scale imaging. TECHNICAL QUALITY: Adequate. COMPARISON: None. FINDINGS: Liver: The liver measures 17.6 cm. There is increased echogenicity consistent with fatty infiltration. The bile ducts are within normal limits. There is hepatic color flow. The direction of portal flow is hepatopetal. There is no demonstrated mass lesion. Gallbladder: Normal distended gallbladder. The gallbladder wall measures 2 mm. There is a negative sonographic Liu''s sign. There is no pericholecystic fluid. There are no gallstones. Common Bile Duct (C.B.D.): The common bile duct measures 4 mm. Pancreas: Normal size of the head, body and tail of the pancreas. There is normal echogenicity of the pancreas. There is no demonstrated pancreatic mass or cyst. Right Kidney: Normal size of the right kidney. The right kidney measures 11.4 cm. Normal renal cortex. The right cortex measures 1.6 cm. There is no demonstrated renal mass or cyst. There is no right hydronephrosis. US/Gallbladder IMPRESSION: Fatty infiltration of the liver. Electronically Signed: Lisandro Garrett MD at 18:10 EST ,
[2022-06-16 16:30] VITALS: PULSE 78; RESP 14
[2022-06-16 18:44] VITALS: RESP 18
== END 2022-06-16 18:44 | disposition home or self-care (01) ==
PROVIDERS: Emergency Provider Emergency Medicine; Visit Provider Emergency Medicine
DX: R11.2 Nausea with vomiting, unspecified (principal); K92.2 Gastrointestinal hemorrhage, unspecified
CPT/HCPCS: 76705; 80053; 83690; 85025; 96361; 96374; 99283; J7030; A4216; J2405; J3490

== ENCOUNTER 2022-07-14 14:58 | Inpatient (IN) | payer OTHER, MEDICAID, SELFPAY ==
[2022-07-14 14:59] VITALS: BP 148/110; PULSE 121; RESP 16; TEMP 36.7; O2SAT 98; BMI 22.3
--- NOTE | 2022-07-14 16:01 | CM.ED ---
SOPHIA Note Referral Source: Case Find Referral Reason: CÉSAR CORTES met with patient and introduced herself and role as [facility] Site Worker. Patient laying in bed, agreeable to meet with SOPHIA. SW inquired about patient's knowledge of the detox program as well as current substance use. Patient explained she wants to detox from alcohol and her last drink was today. Patient reported some knowledge of the program but couldn't recall specifics. SOPHIA reviewed with patient [facility] program including average length of stay, rules regarding no visitors and patient's items being locked up. SOPHIA also informed patient she would meet with the Addiction's counselor, Herbert, to discuss plan of care after detox. Patient stated understanding and agreed to rules of the program. No other needs voiced at this time, SOPHIA remains available if needs arise. SOPHIA left for Navigator regarding new RAMP admit. Plan: CÉSAR THORNE, MARK
[2022-07-14 16:06] VITALS: BP 143/97; PULSE 68; RESP 18; O2SAT 98
--- NOTE | 2022-07-14 16:08 | EX.ED.SAOD ---
HPI History of Present Illness Chief Complaint: Substance Abuse Narrative Narrative: 32-year-old female with history of alcohol abuse presenting for detox. Last drink was about 8 this morning. She feels like she is withdrawing. She states has been through withdrawal before. She typically drinks a half a bottle of Jasper's a day. She states this is a 1/5 bottle. Patient denies other medical problems. [facility] Medical History ADHD (attention deficit hyperactivity disorder) Anxiety ETOH abuse Hypertension Panic disorder Home Medications norethindrone-e.estradiol triphasic 0.5 mg/0.75 mg/1 mg-35 mcg tablet (Nortrel (28)) 1 tab PO DAILY control 03/31/22 [History Last Taken 03/30/22] Allergy/AdvReac Type Severity Reaction Status Date / Time No Known Allergies Allergy Verified 06/16/22 12:47 Social History Smoking Status: Never smoker ROS ROS ED Constitutional Constitutional ED: Denies chills, fever(s) or sweats Eyes Eyes: Denies blurry vision or change in vision ENT ENT ED: Denies ear pain or sore throat Cardiovascular Cardiovascular: Denies chest pain, palpitations or racing heartbeat Respiratory/Chest Respiratory/Chest: Denies cough, dyspnea or sputum Gastrointestinal Gastrointestinal: Denies abdominal pain, constipation, diarrhea, nausea or vomiting Genitourinary Genitourinary ED: Denies dysuria, hematuria or urinary frequency Musculoskeletal Musculoskeletal: Denies arthralgias, myalgias or neck pain Integumentary Denies abscess, Abrasions or rash Neurologic Neurologic: Denies headache(s), paresthesias or weakness Psychiatric Psychiatric: Reports anxiety; Denies depression, suicidal ideation or suicidal thoughts Endocrine Endocrinology: Denies polydipsia or polyuria EXAM Physical Exam Const Vital Signs: 07/14/22 14:59 07/14/22 16:06 07/14/22 17:00 Temperature 98.1 F Temperature Source Temporal Pulse Rate 121 H 68 97 Respiratory Rate 16 18 Blood Pressure 148/110 H 143/97 H Blood Pressure Mean 122 112 Pulse Ox 98 98 Oxygen Delivery Method Room Air Room Air 07/14/22 18:00 Temperature Temperature Source Pulse Rate 99 Respiratory Rate 18 Blood Pressure Blood Pressure Mean Pulse Ox Oxygen Delivery Method Positive well nourished General Appearance ED: NAD; Negative for pallor HEENT Reports moist mucous membranes atraumatic Eyes PERRL and EOMs intact bilaterally Lymph Lymphatic: no lymphadenopathy noted Resp normal respiratory effort and clear to auscultation bilaterally Cardio regular rhythm Rate: tachycardic GI soft to palpation Neuro oriented x3 and CN's II-XII intact bilaterally Sensorium / Orientation: alert Psych mental status grossly normal and thought process normal Mood & Affect: anxious Skin General Skin Exam: Negative for jaundice or pallor MDM MDM MDM Narrative Medical decision making narrative: 5-year-old female presenting for EtOH detox. Patient is a stroke was this morning and she starting withdrawal. Will obtain medical clearance lab work as patient will need to be admitted to detox. She was given 1 mg of Ativan IV. Although the patient is presenting for EtOH detox I do need to ensure she does not have worsening liver disease, thrombocytopenia, anemia, renal dysfunction, electrolyte abnormalities is not , and will need no other drugs of abuse. CBC obtained to assess hemoglobin, platelets, white blood cell count and differential. CMP to assess liver function, renal function, electrolytes. EtOH level will be obtained to assess blood alcohol level. Urine drug screen will be obtained to ensure there is no other drugs in her system. hCG to assess for . CBC shows leukopenia however this is not new for the patient. Hemoglobin hematocrit are stable. Platelets within normal limits. Liver function testing shows her AST, ALT, alkaline phosphatase, total bilirubin are all elevated but in the same range as they were previously. Patient does not have any abdominal pain. Renal function and electrolytes are normal. Glucose is slightly low at 60. EtOH level is 404. Serum hCG negative. Urine drug screen was negative. Patient discussed with hospitalist for admission. Impression: 1. Leukopenia 2. EtOH withdrawal 3. EtOH abuse 4. Transaminitis Lab Data Labs: Laboratory Results - last 24 hr 07/14/22 07/14/22 07/14/22 16:00 16:00 16:00 WBC 3.1 L RBC 4.30 Hgb 14.2 Hct 43.1 MCV 100.2 H MCH 33.0 H MCHC 32.9 RDW Std Deviation 67.6 H RDW Coeff of Yao 18.3 H Plt Count 151 MPV 9.8 Immature Gran % (Auto) 1.000 H Neut % (Auto) 65.9 Lymph % (Auto) 22.6 [place] % (Auto) 8.3 Eos % (Auto) 0.3 Baso % (Auto) 1.9 H Absolute Neuts (auto) 2.1 Absolute Lymphs (auto) 0.71 L Nucleated RBC % 0 Differential Comment SCANNED Anisocytosis 2+ Microcytosis 1+ Macrocytosis 1+ Sodium 138 Potassium 4.8 Chloride 101 Carbon Dioxide 15.0 L Anion Gap 22 H BUN 8 Creatinine 0.67 Estim Creat Clear Calc 106.02 Est GFR (MDRD) Af Amer 134 Est GFR (MDRD) Non-Af 110 BUN/Creatinine Ratio 12.0 Glucose 60 L Calcium 8.5 Total Bilirubin 1.10 H AST 594 H ALT 151 H Alkaline Phosphatase 155 H Total Protein 8.8 H Albumin 4.3 Globulin 4.5 H Albumin/Globulin Ratio 1.0 Serum , Qual Urine Opiates Screen Urine Methadone Screen Ur Barbiturates Screen Ur Phencyclidine Scrn Ur Amphetamines Screen MDMA (Ecstasy) Screen U Benzodiazepines Scrn Urine Cocaine Screen U Cannabinoids Screen Ur Drug Screen Comment Ethyl Alcohol 404.0 H* 07/14/22 07/14/22 16:00 16:30 WBC RBC Hgb Hct MCV MCH MCHC RDW Std Deviation RDW Coeff of Yao Plt Count MPV Immature Gran % (Auto) Neut % (Auto) Lymph % (Auto) [place] % (Auto) Eos % (Auto) Baso % (Auto) Absolute Neuts (auto) Absolute Lymphs (auto) Nucleated RBC % Differential Comment Anisocytosis Microcytosis Macrocytosis Sodium Potassium Chloride Carbon Dioxide Anion Gap BUN Creatinine Estim Creat Clear Calc Est GFR (MDRD) Af Amer Est GFR (MDRD) Non-Af BUN/Creatinine Ratio Glucose Calcium Total Bilirubin AST ALT Alkaline Phosphatase Total Protein Albumin Globulin Albumin/Globulin Ratio Serum , Qual NEGATIVE Urine Opiates Screen NEGATIVE Urine Methadone Screen NEGATIVE Ur Barbiturates Screen NEGATIVE Ur Phencyclidine Scrn NEGATIVE Ur Amphetamines Screen NEGATIVE MDMA (Ecstasy) Screen NEGATIVE U Benzodiazepines Scrn NEGATIVE Urine Cocaine Screen NEGATIVE U Cannabinoids Screen NEGATIVE Ur Drug Screen Comment Ethyl Alcohol Discharge Plan Disposition Disposition: Acute Care Hospital [facility] Discharge Date/Time: 07/14/22 19:11
[2022-07-14 16:29] LABS: Absolute Lymphocyte Count 0.71 X10^3/uL (0.83-4.51); Absolute Neutrophil Count 2.1 X10^3/uL (2.0-7.7); Basophil# 0.06 X10^3/uL; Basophil% 1.9 % (0-1); Eosinophil# 0.01 X10^3/uL; Eosinophils% 0.3 % (0-5); Hematocrit 43.1 % (37-47); Hemoglobin 14.2 g/dL (12.0-15.0); Lymphocyte # 0.71 X10^3/ul (0.83-4.51); Lymphocyte % 22.6 % (19-41); Mean Corp Hgb Conc 32.9 g/dL (32-36); Mean Corpuscular Volume 100.2 fL (81-99); Mean Platelet Vol. 9.8 fl (6.2-12.0); Monocyte# 0.26 X10^3/uL; Monocyte% 8.3 % (0-10); NRBC Flagged by Analyzer 0 % (0-5); Neutrophil # 2.07 X10^3/uL (2.7-7.7); Neutrophil % 65.9 % (47-70); POSITIVE MORPHOLOGY YES; Platelet Count 151 K/mm3 (150-450); RBC Distribution Width CV 18.3 % (11.6-14.6); RBC Distribution Width SD 67.6 fl (35.1-43.9); White Blood Count 3.1 K/mm3 (4.4-11.0)
[2022-07-14 16:31] LABS: Differential Indicated SCAN CRITERIA MET
[2022-07-14 16:32] LABS: AST(SGOT) 594 U/L (15-37); Alanine Aminotransfer ALT/SGPT 151 U/L (13-56); Albumin, Serum 4.3 g/dL (3.2-5.0); Alkaline Phosphatase 155 U/L (45-117); Anion Gap 22 (5-15); BUN 8 mg/dL (7-18); Calcium,Total 8.5 mg/dL (8.5-10.1); Chloride 101 mmol/L (98-107); Creatinine, Serum 0.67 mg/dL (0.55-1.02); EST Glomerular Filtration Rate 110 mL/min (>60); Est Glom Filt Rate - Afr Amer 134 mL/min (>60); Estimated Creatinine Clearance 106.02 ml/min; Globulin 4.5 g/dL (2.2-4.2); Glucose 60 mg/dL (74-106); Potassium 4.8 mmol/L (3.5-5.1); Protein, Total 8.8 g/dL (6.4-8.2); Sodium Level 138 mmol/L (136-145)
[2022-07-14] MEDS: LORazepam 2 MG/ML Syringe 1 MG IV (16:33)
[2022-07-14 17:00] VITALS: PULSE 97
[2022-07-14 17:01] LABS: Anisocytosis 2+; Differential Comment SCANNED; Macrocytosis 1+; Microcytosis 1+
[2022-07-14 17:02] LABS: Amphetamine Urine VISTA NEGATIVE (<1000 ng/mL); Barbiturate Urine VISTA NEGATIVE (< 200 ng/mL); Benzodiazepine Urine VISTA NEGATIVE (< 200 ng/mL); Cocaine Urine VISTA NEGATIVE (< 300 ng/mL); Ecstacy Urine VISTA NEGATIVE (< 500 ng/mL); Methadone Urine VISTA NEGATIVE (< 300 ng/mL); PCP Urine VISTA NEGATIVE (< 25 ng/mL); THC Urine VISTA NEGATIVE (< 50 ng/mL); Vista UDS pH Range 5
[2022-07-14 17:04] LABS: Internal QC Validated? YES +Cl - CLEAR BKGD; Pregnancy, Serum, hCG Quali. NEGATIVE Negative
--- NOTE | 2022-07-14 17:30 | PCM.HP.STD ---
[facility] - General General Date of Service: 07/14/22 Chief Complaint: alcohol withdrawal HPI Narrative JEROME ROCHA, is a 32 F with a PMH as outlined who presents via the ED on 07/14/2022 for alcohol withdrawal. Her last drink was ~ 8 on the morning of admission. She drinks half a fifth of vodka daily. She went through detox ~ 3 months ago. She thinks she is going into withdrawal. She denies any tremors, shakes, abdominal pain or increased sweating. Review of systems is otherwise negative. Vitals were BP of 143/97, MI of 68, RR of 18 and temp was 98.1F. She was saturating at 98% on room air. CBC showed wbc of 3.1 and Hb of 14.2. MCV was elevated at 100.2 and MCH was also elevated at 33. Chemistry showed bicarb of 15 with sodium of 138 and potassium of 4.8 with creatinine of 0.67. Glucose was 60 and total bilirubin was 1.1. AST and ALT were elevated with AST ALT ratio more than 2-1. ALP is also elevated. Serum alcohol level is 404 and urine tox was otherwise negative. She has been admitted to be managed for acute alcohol intoxication with likely progression to withdrawal. [facility] Medical History ADHD (attention deficit hyperactivity disorder) Anxiety ETOH abuse Hypertension Panic disorder Home Medications norethindrone-e.estradiol triphasic 0.5 mg/0.75 mg/1 mg-35 mcg tablet (Nortrel (28)) 1 tab PO DAILY control 03/31/22 [History Last Taken 03/30/22] Allergy/AdvReac Type Severity Reaction Status Date / Time No Known Allergies Allergy Verified 06/16/22 12:47 Social History Smoking Status: Never smoker ROS Review of Systems ROS Unobtainable: Denies due to encephalopathy Constitutional Constitutional: Denies anorexia, chills, fatigue, fever(s), malaise or weakness Eyes Eyes: Denies change in vision ENT HEENT: Denies dysphagia, headache(s) or sore throat Cardiovascular Cardiovascular: Denies chest pain, dyspnea on exertion, edema, lightheadedness, orthopnea or palpitations Respiratory/Chest Respiratory/Chest: Denies cough, dyspnea, productive cough, shortness of breath at rest or shortness of breath with exertion Gastrointestinal Gastrointestinal: Reports constipation; Denies abdominal pain, nausea or vomiting Genitourinary Genitourinary: Denies dysuria or nocturia Musculoskeletal Musculoskeletal: Denies arthralgias Neurologic Neurologic: Denies confusion, disequilibrium, dizziness or focal weakness Psychiatric Psychiatric: Denies anxiety Vital Signs Vital Signs Vital Signs: 07/14/22 14:59 07/14/22 16:06 Temperature 98.1 F Temperature Source Temporal Pulse Rate 121 H 68 Respiratory Rate 16 18 Blood Pressure 148/110 H 143/97 H Blood Pressure Mean 122 112 Pulse Ox 98 98 Oxygen Delivery Method Room Air Room Air Weight Weight: 130 lb Body Mass Index (BMI) 22.3 Physical Exam Const alert, oriented x3 and no apparent distress General Appearance: cooperative HEENT normocephalic, head/scalp atraumatic, hearing grossly normal bilaterally and moist oral mucous membranes Mouth: oral and palatal mucosa normal Eyes PERRL, EOMs intact bilaterally and conjunctivae normal Neck no lymphadenopathy and supple Resp normal respiratory effort, no retractions, no use of accessory muscles and clear to auscultation bilaterally Cardio regular rate, regular rhythm, S1 normal heart sound, S2 normal heart sound and no murmurs GI normal to inspection, nondistended, normoactive bowel sounds, soft to palpation, non-tender and non-distended Extremity normal to inspection, full ROM and no clubbing, cyanosis or edema Neuro oriented x3, CN's II-XII intact bilaterally, moves all extremities and no focal motor deficits Sensorium / Orientation: awake and alert Motor Exam: strength 5/5 throughout Psych affect normal Results Lab / Micro Data Result Diagrams: 07/14/22 16:00 07/14/22 16:00 Labs: Laboratory Results - last 24 hr 07/14/22 16:00: WBC 3.1 L, RBC 4.30, Hgb 14.2, Hct 43.1, MCV 100.2 H, MCH 33.0 H, MCHC 32.9, RDW Std Deviation 67.6 H, RDW Coeff of Yao 18.3 H, Plt Count 151, MPV 9.8, Immature Gran % (Auto) 1.000 H, Neut % (Auto) 65.9, Lymph % (Auto) 22.6, [place] % (Auto) 8.3, Eos % (Auto) 0.3, Baso % (Auto) 1.9 H, Absolute Neuts (auto) 2.1, Absolute Lymphs (auto) 0.71 L, Nucleated RBC % 0, Differential Comment SCANNED, Anisocytosis 2+, Microcytosis 1+, Macrocytosis 1+ 07/14/22 16:00: Sodium 138, Potassium 4.8, Chloride 101, Carbon Dioxide 15.0 L, Anion Gap 22 H, BUN 8, Creatinine 0.67, Estim Creat Clear Calc 106.02, Est GFR (MDRD) Af Amer 134, Est GFR (MDRD) Non-Af 110, BUN/Creatinine Ratio 12.0, Glucose 60 L, Calcium 8.5, Total Bilirubin 1.10 H, AST 594 H, ALT 151 H, Alkaline Phosphatase 155 H, Total Protein 8.8 H, Albumin 4.3, Globulin 4.5 H, Albumin/Globulin Ratio 1.0 07/14/22 16:00: Serum , Qual NEGATIVE 07/14/22 16:30: Urine Opiates Screen NEGATIVE, Urine Methadone Screen NEGATIVE, Ur Barbiturates Screen NEGATIVE, Ur Phencyclidine Scrn NEGATIVE, Ur Amphetamines Screen NEGATIVE, MDMA (Ecstasy) Screen NEGATIVE, U Benzodiazepines Scrn NEGATIVE, Urine Cocaine Screen NEGATIVE, U Cannabinoids Screen NEGATIVE, Ur Drug Screen Comment Assessment & Plan Assessment/Plan (1) Alcohol withdrawal: (2) ETOH abuse: PLAN: Plan #Acute alcohol withdrawal admit to med surg start on alcohol withdrawal protocol with phenobarbital multivite, folic acid and thiamine monitor CIWA score #Leucopenia likely due to chronic alcohol abuse will trend and monitor #Anion gap metabolic acidosis: Bicarb is 15 with an anion gap of 22. This may be due to starvation ketosis as patient has not been eating as only been drinking. Glucose is only 60. Will check lactic acid in light of liver impairment also. Hydrate gently with IV fluids and trend. #Elevated liver enzymes: This is chronic and likely due to chronic alcohol abuse. Will trend. DVT prophylaxis: Low risk. Encouraged to ambulate. Charges/Coding Visit Charges Inpatient E&M: 96077 Init Hosp L3
--- NOTE | 2022-07-14 17:32 | NURSING ---
DR BRADEN FOR DR HALL
[2022-07-14 18:00] VITALS: PULSE 99; RESP 18
[2022-07-14 19:10] VITALS: BP 135/84; PULSE 79; RESP 18; TEMP 36.7; O2SAT 98
[2022-07-14 19:50] VITALS: BMI 20.4
[2022-07-14] MEDS: 0.9% Normal Saline 1,000 ML 125 ML IV (20:19)
[2022-07-14] MEDS: Ondansetron 4 MG/2 ML Vial IV (20:19)
[2022-07-14] MEDS: Phenobarbital 32.4 MG Tablet 64.8 MG PO ×2 (20:19→23:50)
[2022-07-14 21:54] LABS: Lactic Acid 2.4 mmol/L (0.4-1.9)
[2022-07-14] MEDS: Ibuprofen 400 MG Tablet PO (22:14)
[2022-07-14 23:45] VITALS: BP 124/76; PULSE 113; RESP 18; TEMP 36.9; O2SAT 96
[2022-07-14] MEDS: hydrOXYzine PAM 25 MG Capsule 50 MG PO (23:54)
[2022-07-14] MEDS: Gabapentin 300 MG Capsule PO (23:54)
[2022-07-15 00:49] LABS: Reflex Lactate? Y
[2022-07-15] MEDS: LORazepam 2 MG/ML Syringe IV (01:00)
[2022-07-15 01:48] LABS: Lactic Acid 1.9 mmol/L (0.4-1.9)
[2022-07-15] MEDS: Phenobarbital 32.4 MG Tablet 64.8 MG PO ×6 (04:44→23:53)
[2022-07-15 04:45] VITALS: BP 116/77; PULSE 85; RESP 18; TEMP 36.9; O2SAT 100
--- NOTE | 2022-07-15 07:34 | PCM.PN.HOSP ---
Subjective Subjective Follow-up acute alcohol withdrawal Patient is a 32-year-old lady with history of alcohol dependence admitted with acute alcohol withdrawal Objective Data Objective Data Vital Signs: Vital Signs Temp Pulse Resp BP Pulse Ox O2 Del Method 98.4 F 85 18 116/77 100 Room Air 07/15/22 04:45 07/15/22 04:45 07/15/22 04:45 07/15/22 04:45 07/15/22 04:45 07/15/22 04:45 Oxygen Delivery Method Room Air Weight: 54 kg Body Mass Index (BMI) 20.4 Intake & Output: Intake and Output for Last 24 Hours 07/13/22 07/14/22 07/15/22 23:59 23:59 23:59 Intake Total 2600 / 2600 Balance 2600 / 2600 Lab / Micro Data Result Diagrams: 07/14/22 16:00 07/15/22 06:58 Labs: Laboratory Results - last 24 hr 07/14/22 16:00: WBC 3.1 L, RBC 4.30, Hgb 14.2, Hct 43.1, MCV 100.2 H, MCH 33.0 H, MCHC 32.9, RDW Std Deviation 67.6 H, RDW Coeff of Yao 18.3 H, Plt Count 151, MPV 9.8, Immature Gran % (Auto) 1.000 H, Neut % (Auto) 65.9, Lymph % (Auto) 22.6, [place] % (Auto) 8.3, Eos % (Auto) 0.3, Baso % (Auto) 1.9 H, Absolute Neuts (auto) 2.1, Absolute Lymphs (auto) 0.71 L, Nucleated RBC % 0, Differential Comment SCANNED, Anisocytosis 2+, Microcytosis 1+, Macrocytosis 1+ 07/14/22 16:00: Sodium 138, Potassium 4.8, Chloride 101, Carbon Dioxide 15.0 L, Anion Gap 22 H, BUN 8, Creatinine 0.67, Estim Creat Clear Calc 106.02, Est GFR (MDRD) Af Amer 134, Est GFR (MDRD) Non-Af 110, BUN/Creatinine Ratio 12.0, Glucose 60 L, Calcium 8.5, Total Bilirubin 1.10 H, AST 594 H, ALT 151 H, Alkaline Phosphatase 155 H, Total Protein 8.8 H, Albumin 4.3, Globulin 4.5 H, Albumin/Globulin Ratio 1.0 07/14/22 16:00: Ethyl Alcohol 404.0 H* 07/14/22 16:00: Serum , Qual NEGATIVE 07/14/22 16:30: Urine Opiates Screen NEGATIVE, Urine Methadone Screen NEGATIVE, Ur Barbiturates Screen NEGATIVE, Ur Phencyclidine Scrn NEGATIVE, Ur Amphetamines Screen NEGATIVE, MDMA (Ecstasy) Screen NEGATIVE, U Benzodiazepines Scrn NEGATIVE, Urine Cocaine Screen NEGATIVE, U Cannabinoids Screen NEGATIVE, Ur Drug Screen Comment 07/14/22 21:05: Lactic Acid 2.4 H* 07/15/22 01:13: Lactic Acid 1.9 Physical Exam Narrative GENERAL: cooperative HEENT: Atraumatic; normocephalic EYES; Anicteric, Normal Conjunctiva NECK; supple, normal thyroid, RESPIRATORY: Diminished to auscultation CARDIOVASCULAR: Regular S1 S2, GI: soft, normoactive bowel sounds, : No Renal angle tenderness; EXTREMITIES: No edema, no clubbing, MUSCULOSKELETAL: no muscle wasting NEURO: Awake; no lateralizing signs. SKIN: No Rash PSYCH; Flat affect Assessment & Plan Assessment/Plan (1) Alcohol withdrawal: (2) ETOH abuse: PLAN: Plan Patient is a 32-year-old lady with history of alcohol dependence admitted with acute alcohol withdrawal 1. Acute alcohol withdrawal ? Patient has been admitted to regular nursing floor managed with phenobarb taper in addition to use of adjuvant medications 2. Acute transaminitis ? Secondary to chronic alcohol dependence. Monitoring with daily LFTs 3. Leukopenia ? Thought to be secondary to patient chronic alcohol use monitoring with CBCs 4. Chronic alcohol dependence -counseled on cessation 5. DVT prophylaxis ? Low risk did encourage early ambulation Time spent in the patient's overall evaluation,decision-making process, review of diagnostic data, adjustment of management, discussion with other providers, nursing nursing and ancillary staff involved in patient's care documentation, 36n Minutes Charges/Coding Visit Charges Inpatient E&M: 79563 Subs Hosp L2
[2022-07-15 08:13] LABS: AST(SGOT) 372 U/L (15-37); Alanine Aminotransfer ALT/SGPT 100 U/L (13-56); Albumin, Serum 3.3 g/dL (3.2-5.0); Alkaline Phosphatase 113 U/L (45-117); Anion Gap 16 (5-15); BUN 8 mg/dL (7-18); BUN/Creat Ratio 16.6 RATIO (10-20); Calcium,Total 7.6 mg/dL (8.5-10.1); Chloride 101 mmol/L (98-107); Creatinine, Serum 0.48 mg/dL (0.55-1.02); EST Glomerular Filtration Rate 161 mL/min (>60); Est Glom Filt Rate - Afr Amer 195 mL/min (>60); Estimated Creatinine Clearance 146.09 ml/min; Globulin 3.4 g/dL (2.2-4.2); Glucose 57 mg/dL (74-106); Potassium 4.7 mmol/L (3.5-5.1); Protein, Total 6.7 g/dL (6.4-8.2); Sodium Level 133 mmol/L (136-145)
[2022-07-15 08:28] VITALS: BP 139/89; PULSE 91; RESP 18; TEMP 36.9; O2SAT 98
[2022-07-15] MEDS: Folic Acid 1 MG Tablet PO (08:30)
[2022-07-15] MEDS: Thiamine Hydrochloride 100 MG Tablet PO (08:30)
--- NOTE | 2022-07-15 11:14 | ADDICTION ---
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 PT A+Ox4 and participated actively. All assessments completed and placed in PT's chart. PT plans to f[facility]u [facility] for [facility]. PT did not indicate a need for transportation post d/c from [facility].
[2022-07-15 12:45] VITALS: BP 134/79; PULSE 103; RESP 18; TEMP 36.9; O2SAT 99
[2022-07-15] MEDS: Ondansetron 8 MG Tablet PO (12:52)
[2022-07-15] MEDS: Gabapentin 300 MG Capsule PO (12:52)
[2022-07-15 16:36] VITALS: BP 126/88; PULSE 84; RESP 18; O2SAT 99
[2022-07-15] MEDS: Ibuprofen 400 MG Tablet PO (16:40)
[2022-07-15 19:38] VITALS: BP 132/87; PULSE 96; RESP 18; TEMP 36.9; O2SAT 98
[2022-07-15] MEDS: hydrOXYzine PAM 25 MG Capsule 50 MG PO (19:43)
[2022-07-16 01:59] VITALS: BP 138/88; PULSE 88; RESP 16; TEMP 36.8; O2SAT 100
[2022-07-16] MEDS: Phenobarbital 32.4 MG Tablet 64.8 MG PO ×5 (05:54→20:37)
--- NOTE | 2022-07-16 07:41 | PN.HOSP_ITS ---
Subjective Subjective Follow-up alcohol withdrawal Objective Data Objective Data Vital Signs: Vital Signs Temp Pulse Resp BP Pulse Ox O2 Del Method 98.2 F 88 16 138/88 H 100 Room Air 07/16/22 01:59 07/16/22 01:59 07/16/22 01:59 07/16/22 01:59 07/16/22 01:59 07/16/22 01:59 Oxygen Delivery Method Room Air Weight: 54 kg Body Mass Index (BMI) 20.4 Intake & Output: Intake and Output for Last 24 Hours 07/14/22 07/15/22 07/16/22 23:59 23:59 23:59 Intake Total 3000 / 3400 400 / 400 Balance 3000 / 3400 400 / 400 Lab / Micro Data Result Diagrams: 07/14/22 16:00 07/15/22 06:58 Labs: Laboratory Results - last 24 hr 07/15/22 06:58: Sodium 133 L, Potassium 4.7, Chloride 101, Carbon Dioxide 16.0 L , Anion Gap 16 H, BUN 8, Creatinine 0.48 L, Estim Creat Clear Calc 146.09, Est GFR (MDRD) Af Amer 195, Est GFR (MDRD) Non-Af 161, BUN/Creatinine Ratio 16.6, Glucose 57 L, Calcium 7.6 L, Total Bilirubin 1.30 H, AST 372 H, ALT 100 H, A lkaline Phosphatase 113, Total Protein 6.7, Albumin 3.3, Globulin 3.4, Albumin/Globulin Ratio 1.0 Physical Exam Narrative GENERAL: cooperative HEENT: Atraumatic; normocephalic EYES; Anicteric, Normal Conjunctiva NECK; supple, normal thyroid, RESPIRATORY: Diminished to auscultation CARDIOVASCULAR: Regular S1 S2, GI: soft, normoactive bowel sounds, : No Renal angle tenderness; EXTREMITIES: No edema, no clubbing, MUSCULOSKELETAL: no muscle wasting NEURO: Awake; no lateralizing signs. SKIN: No Rash PSYCH; Flat affect Assessment & Plan Assessment/Plan (1) Alcohol withdrawal: (2) ETOH abuse: PLAN: Plan Patient is a 32-year-old lady with history of alcohol dependence admitted with acute alcohol withdrawal 1. Acute alcohol withdrawal ? Patient has been admitted to regular nursing floor managed with phenobarb taper in addition to use of adjuvant medications 2. Acute transaminitis ? Secondary to chronic alcohol dependence. Monitoring with daily LFTs 3. Leukopenia ? Thought to be secondary to patient chronic alcohol use monitoring with CBCs 4. Chronic alcohol dependence -counseled on cessation 5. DVT prophylaxis ? Low risk did encourage early ambulation Time spent in the patient's overall evaluation,decision-making process, review of diagnostic data, adjustment of management, discussion with other providers, nursing nursing and ancillary staff involved in patient's care documentation, 36 Minutes Charges/Coding Visit Charges Inpatient E&M: 44548 Subs Hosp L2
[2022-07-16 08:00] VITALS: BP 140/94; PULSE 87; RESP 18; TEMP 36.6; O2SAT 96
[2022-07-16] MEDS: Ibuprofen 400 MG Tablet PO (08:39)
[2022-07-16] MEDS: Gabapentin 300 MG Capsule PO (08:40)
[2022-07-16] MEDS: Folic Acid 1 MG Tablet PO (08:41)
[2022-07-16] MEDS: Thiamine Hydrochloride 100 MG Tablet PO (08:41)
[2022-07-16 09:00] VITALS: BP 140/94; PULSE 91; RESP 16; O2SAT 99
[2022-07-16 09:38] LABS: Mucous, Urine 0 SEEN /hpf (<or=2+)
[2022-07-16 09:40] LABS: Color, Urine Yellow (Yellow); Glucose, Dipstick Normal (Normal); Ketone-Dipstick 15 mg/dl (Negative); Leukocyte Esterase-Dipstick 500 /ul (Negative); Nitrite-Dipstick Positive (Negative); Occult Blood-Urine 50 /ul (Negative); Protein-Dipstick 100 mg/dl (Negative); Urine Bilirubin Dipstick 1 mg/dL (Negative); Urine Clarity Sl. Cloudy (Clear); Urine Urobilinogen 4 mg/dl (Normal)
[2022-07-16 09:47] LABS: Bacteria 1+ /hpf (None Seen); Red Blood Cells-Urine 0-5 SEEN /hpf (0-5); Squamous Epithelial Cells - UA 0-5 SEEN /hpf (5-10); White Blood Cells 25-50 SEEN /hpf (0-5)
[2022-07-16 13:13] VITALS: BP 139/98; PULSE 71; RESP 18; TEMP 36.7; O2SAT 100
[2022-07-16] MEDS: Ceftriaxone 1 GM/50 ML BAG IV (16:26)
[2022-07-16 20:47] VITALS: BP 139/94; PULSE 90; RESP 16; TEMP 36.7; O2SAT 100
[2022-07-17] MEDS: Phenobarbital 32.4 MG Tablet 64.8 MG PO ×3 (00:05→10:42)
[2022-07-17 04:18] VITALS: BP 123/91; PULSE 98; RESP 16; TEMP 36.9; O2SAT 99
--- NOTE | 2022-07-17 08:15 | PCM.PN.HOSP ---
Subjective Subjective Follow-up acute cystitis ? Patient had apparently complained of frequency and dysuria urinalysis obtained came back consistent with cystitis patient subsequently started on Rocephin Objective Data Objective Data Vital Signs: Vital Signs Temp Pulse Resp BP Pulse Ox O2 Del Method 98.4 F 98 16 123/91 H 99 Room Air 07/17/22 04:18 07/17/22 04:18 07/17/22 04:18 07/17/22 04:18 07/17/22 04:18 07/17/22 04:18 Oxygen Delivery Method Room Air Weight: 54 kg Body Mass Index (BMI) 20.4 Intake & Output: Intake and Output for Last 24 Hours 07/15/22 07/16/22 07/17/22 23:59 23:59 23:59 Intake Total 3000 / 3400 450 / 450 Balance 3000 / 3400 450 / 450 Lab / Micro Data Result Diagrams: 07/14/22 16:00 07/15/22 06:58 Labs: Laboratory Results - last 24 hr 07/16/22 09:30: Urine Color Yellow, Urine Clarity Sl. Cloudy, Urine pH 8.0, Ur Specific [place] 1.010, Urine Protein 100 H, Urine Glucose (UA) Normal, Urine Ketones 15 H, Urine Occult Blood 50 H, Urine Nitrite Positive H, Urine Bilirubin 1 H, Urine Urobilinogen 4 H, Ur Leukocyte Esterase 500 H, Urine RBC 0-5 SEEN, Urine WBC 25-50 SEEN, Ur Squamous Epith Cells 0-5 SEEN, Urine Bacteria 1+, Urine Mucus 0 SEEN Physical Exam Narrative GENERAL: cooperative HEENT: Atraumatic; normocephalic EYES; Anicteric, Normal Conjunctiva NECK; supple, normal thyroid, RESPIRATORY: Diminished to auscultation CARDIOVASCULAR: Regular S1 S2, GI: soft, normoactive bowel sounds, : No Renal angle tenderness; EXTREMITIES: No edema, no clubbing, MUSCULOSKELETAL: no muscle wasting NEURO: Awake; no lateralizing signs. SKIN: No Rash PSYCH; Flat affect Assessment & Plan Assessment/Plan (1) Alcohol withdrawal: (2) ETOH abuse: PLAN: Plan Patient is a 32-year-old lady with history of alcohol dependence admitted with acute alcohol withdrawal 1. Acute alcohol withdrawal ? Patient has been admitted to regular nursing floor managed with phenobarb taper in addition to use of adjuvant medications 2. Acute transaminitis ? Secondary to chronic alcohol dependence. Monitoring with daily LFTs 3. Leukopenia ? Thought to be secondary to patient chronic alcohol use monitoring with CBCs 4. Chronic alcohol dependence -counseled on cessation 5. DVT prophylaxis ? Low risk did encourage early ambulation 6. Acute cystitis ? Patient was started on Rocephin on 07/16/2021 following her symptoms and abnormal urinalysis. Cultures have been sent we will follow-up on results Time spent in the patient's overall evaluation,decision-making process, review of diagnostic data, adjustment of management, discussion with other providers, nursing nursing and ancillary staff involved in patient's care documentation, 36 Minutes Charges/Coding Visit Charges Inpatient E&M: 43530 Subs Hosp L2
--- NOTE | 2022-07-17 08:58 | PCM.DC.SUM ---
Providers Date of Admission: 07/14/22 Date of Discharge: 07/17/22 Primary Care Physician: KARIN CARO Reason For Visit: ALCOHOL WITHDRAWAL Diagnosis Discharge Diagnosis (1) Alcohol withdrawal: Status: Acute Code(s): F10.939 - Alcohol use, unspecified with withdrawal, unspecified (2) ETOH abuse: Status: Acute Code(s): F10.10 - Alcohol abuse, uncomplicated Plan Patient is a 32-year-old lady with history of alcohol dependence admitted with acute alcohol withdrawal 1. Acute alcohol withdrawal ? Patient has been admitted to regular nursing floor managed with phenobarb taper in addition to use of adjuvant medications 2. Acute transaminitis ? Secondary to chronic alcohol dependence. Monitoring with daily LFTs 3. Leukopenia ? Thought to be secondary to patient chronic alcohol use monitoring with CBCs 4. Chronic alcohol dependence -counseled on cessation 5. DVT prophylaxis ? Low risk did encourage early ambulation 6. Acute cystitis ? Patient was started on Rocephin on 07/16/2021 following her symptoms and abnormal urinalysis. Cultures have been sent we will follow-up on results ? Patient requested to be discharged home she was discharged on cefdinir Medications at Discharge Home Medications norethindrone-e.estradiol triphasic 0.5 mg/0.75 mg/1 mg-35 mcg tablet (Nortrel (28)) 1 tab PO DAILY control 03/31/22 cefdinir 300 mg capsule 300 mg PO BID #10 caps 07/17/22 Hospital Course Summary of Care Provided Minutes Spent on Discharge: 36 Physical Exam Narrative GENERAL: cooperative HEENT: Atraumatic; normocephalic EYES; Anicteric, Normal Conjunctiva NECK; supple, normal thyroid, RESPIRATORY: Diminished to auscultation CARDIOVASCULAR: Regular S1 S2, GI: soft, normoactive bowel sounds, : No Renal angle tenderness; EXTREMITIES: No edema, no clubbing, MUSCULOSKELETAL: no muscle wasting NEURO: Awake; no lateralizing signs. SKIN: No Rash PSYCH; Flat affect Weight / BMI Weight Weight: 54 kg Body Mass Index (BMI) 20.4 ABG / Lab / Microbiology Data Result Diagrams: 07/14/22 16:00 07/15/22 06:58 Laboratory: Laboratory Results - last 24 hr 07/16/22 09:30: Urine Color Yellow, Urine Clarity Sl. Cloudy, Urine pH 8.0, Ur Specific [place] 1.010, Urine Protein 100 H, Urine Glucose (UA) Normal, Urine Ketones 15 H, Urine Occult Blood 50 H, Urine Nitrite Positive H, Urine Bilirubin 1 H, Urine Urobilinogen 4 H, Ur Leukocyte Esterase 500 H, Urine RBC 0-5 SEEN, Urine WBC 25-50 SEEN, Ur Squamous Epith Cells 0-5 SEEN, Urine Bacteria 1+, Urine Mucus 0 SEEN D/C Instructions Discharge Diet: No restrictions Discharge Activity: Return to Normal Activity Call your doctor if you observe: Fever of 101 or Higher, Shortness of breath, Fainting spells and Chest pain Meaningful Use Info Meaningful Use Diagnoses (Choose all that apply): None applicable Discharge Plan Admission Admit Date/Time: 07/14/22 17:45 Attending Provider: Linus Graves Primary Care Provider: KARIN CARO Consulting Providers: Mary Beth Wade Discharge Orders/Prescriptions Prescriptions: New cefdinir 300 mg capsule 300 mg PO BID Qty: 10 0RF No Action Nortrel (28) 0.5/0.75/1 mg- 35 mcg tablet 1 tab PO DAILY Label Comments: TAKE 1 TABLET BY MOUTH EVERY DAY Referrals / Follow Up: KARIN CARO [Other] Care Physician,No Primary [Non-Staff] - Disposition Disposition (needs filled in before D/C Order can be placed): Home, Self Care Charges/Coding Visit Charges Inpatient E&M: 13011 Disch Hosp >30min
--- NOTE | 2022-07-17 09:42 | PHA.DC.MR ---
Pharmacy Service has performed discharge medication reconciliation for this patient. Home Medications norethindrone-e.estradiol triphasic 0.5 mg/0.75 mg/1 mg-35 mcg tablet (Nortrel (28)) 1 tab PO DAILY control 03/31/22 cefdinir 300 mg capsule 300 mg PO BID #10 caps 07/17/22 The patient's discharge medication list was reviewed for discrepancies and discrepancies were resolved.
[2022-07-17] MEDS: Ceftriaxone 1 GM/50 ML BAG IV (10:42)
[2022-07-17] MEDS: Thiamine Hydrochloride 100 MG Tablet PO (10:42)
[2022-07-17] MEDS: Folic Acid 1 MG Tablet PO (10:42)
[2022-07-17] MEDS: 0.9% Saline Lock 10 ML Syringe IV (10:43)
[2022-07-17 10:49] VITALS: BP 128/90; PULSE 92; RESP 18; TEMP 36.6; O2SAT 100
== END 2022-07-17 12:00 | disposition home or self-care (01) | DRG 775 ==
LOC: ED 17:14 → MS3 20:37
PROVIDERS: Admitting Provider Student in an Organized Health Care Education/Training Program; Emergency Provider Student in an Organized Health Care Education/Training Program; Visit Provider Internal Medicine
DX: F10.239 Alcohol dependence with withdrawal, unspecified (principal); E87.20 Acidosis, unspecified; F10.229 Alcohol dependence with intoxication, unspecified; D72.819 Decreased white blood cell count, unspecified; Y90.8 Blood alcohol level of 240 mg/100 ml or more; N30.00 Acute cystitis without hematuria; R74.01 Elevation of levels of liver transaminase levels
CPT/HCPCS: 36415; 80053; 80307; 81001; 82077; 83605; 84703; 85025; 87086; 87088; 99283; J7030; A4216; J2405